=== PATIENT | male | born 1985 | race Caucasian/White ===

== ENCOUNTER 2018-01-22 12:26 | Emergency (ER) | payer SELFPAY ==
[~2018-01-22] VITALS: Ht 180.3 cm; Wt 70.0 kg
[2018-01-22 12:46] VITALS: BP 108/88; PULSE 88; RESP 14; TEMP 100
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
[2018-01-22 13:09] LABS: AUTOMATED NEUTROPHIL # 6.9 TH/MM3 (1.8-7.7); BASOPHIL % 0.3 % (0.0-2.0); EOSINOPHIL # 0.1 TH/MM3 (0-0.4); EOSINOPHIL % 0.8 % (0.0-4.0); HEMATOCRIT 41.9 % (39.0-51.0); HEMOGLOBIN 14.3 GM/DL (13.0-17.0); LYMPH % 19.2 % (9.0-44.0); MEAN CELL VOLUME 88.8 FL (80.0-100.0); MEAN CORPUSCULAR HEMOGLOBIN 30.4 PG (27.0-34.0); MEAN CORPUSCULAR HGB CONC 34.2 % (32.0-36.0); MEAN PLATELET VOLUME 7.4 FL (7.0-11.0); MONO % 11.2 % (0.0-8.0); MONOCYTE # 1.1 TH/MM3 (0-0.9); NEUT % 68.5 % (16.0-70.0); PLATELET COUNT 288 TH/MM3 (150-450); RED BLOOD COUNT 4.72 MIL/MM3 (4.50-5.90); RED CELL DISTRIBUTION WIDTH 14.1 % (11.6-17.2); WHITE BLOOD COUNT 10.1 TH/MM3 (4.0-11.0)
[2018-01-22 13:38] LABS: ALBUMIN 4.2 GM/DL (3.4-5.0); ALT (GPT) 142 U/L (12-78); AST (GOT) 93 U/L (15-37); BLOOD UREA NITROGEN 18 MG/DL (7-18); CALCIUM 9.7 MG/DL (8.5-10.1); CHLORIDE 103 MEQ/L (98-107); CREATININE 1.33 MG/DL (0.60-1.30); GLOMERULAR FILTRATION RATE 63 ML/MIN (>89); GLUCOSE,RANDOM 84 MG/DL (74-106); SODIUM (NA) 138 MEQ/L (136-145)
[2018-01-22 13:47] LABS: ALKALINE PHOSPHATASE 68 U/L (45-117); TOTAL BILIRUBIN ADULT 1.5 MG/DL (0.2-1.0); TOTAL PROTEIN 8.2 GM/DL (6.4-8.2)
[2018-01-23 05:29] VITALS: BP 120/57; PULSE 68; RESP 18; O2SAT 99
--- NOTE | 2018-01-23 10:51 | PD ---
Physical Exam Narrative Patient was cleared by medical team and psychiatric team. Data Data Last Documented VS Vital Signs Date Time Temp Pulse Resp B/P (MAP) Pulse Ox O2 Delivery O2 Flow Rate FiO2 01/23/18 05:29 68 18 120/57 (78) 99 Room Air 01/22/18 12:46 100.0 Orders Orders Complete Blood Count With Diff (01/22/18 12:43) Comprehensive Metabolic Panel (01/22/18 12:43) Thyroid Stimulating Hormone (01/22/18 12:43) Psych Screen (01/22/18 12:43) Drug Screen, Random Urine (01/22/18 12:43) Alcohol (Ethanol) (01/22/18 12:43) Diet Regular Basic (01/22/18 Dinner) Diet Regular Basic (01/23/18 Breakfast) Diet Regular Basic (01/23/18 Lunch) Ed Discharge Order (01/23/18 10:49) Labs Laboratory Tests Test 01/22/18 12:51 01/22/18 19:10 White Blood Count 10.1 TH/MM3 Red Blood Count 4.72 MIL/MM3 Hemoglobin 14.3 GM/DL Hematocrit 41.9 % Mean Corpuscular Volume 88.8 FL Mean Corpuscular Hemoglobin 30.4 PG Mean Corpuscular Hemoglobin Concent 34.2 % Red Cell Distribution Width 14.1 % Platelet Count 288 TH/MM3 Mean Platelet Volume 7.4 FL Neutrophils (%) (Auto) 68.5 % Lymphocytes (%) (Auto) 19.2 % Monocytes (%) (Auto) 11.2 % Eosinophils (%) (Auto) 0.8 % Basophils (%) (Auto) 0.3 % Neutrophils # (Auto) 6.9 TH/MM3 Lymphocytes # (Auto) 2.0 TH/MM3 Monocytes # (Auto) 1.1 TH/MM3 Eosinophils # (Auto) 0.1 TH/MM3 Basophils # (Auto) 0.0 TH/MM3 CBC Comment DIFF FINAL Differential Comment Blood Urea Nitrogen 18 MG/DL Creatinine 1.33 MG/DL Random Glucose 84 MG/DL Total Protein 8.2 GM/DL Albumin 4.2 GM/DL Calcium Level 9.7 MG/DL Alkaline Phosphatase 68 U/L Aspartate Amino Transf (AST/SGOT) 93 U/L Alanine Aminotransferase (ALT/SGPT) 142 U/L Total Bilirubin 1.5 MG/DL Sodium Level 138 MEQ/L Potassium Level 4.6 MEQ/L Chloride Level 103 MEQ/L Carbon Dioxide Level 27.0 MEQ/L Anion Gap 8 MEQ/L Estimat Glomerular Filtration Rate 63 ML/MIN Thyroid Stimulating Hormone 3rd Gen 0.832 uIU/ML Ethyl Alcohol Level LESS THAN 3 MG/DL Urine Opiates Screen NEG Urine Barbiturates Screen NEG Urine Amphetamines Screen POS Urine Benzodiazepines Screen NEG Urine Cocaine Screen POS Urine Cannabinoids Screen POS MDM Supervised Visit with EROS: No Diagnosis Primary Impression: Medical clearance for psychiatric admission Additional Impression: Substance induced mood disorder Patient Instructions: General Instructions Additional Instruction: Follow-up with local physician. Med/Other Pt SpecificInfo: No Change to Meds Scripts No Active Prescriptions or Reported Meds Disposition: 01 DISCHARGE HOME Condition: Stable Stephan Scanlon MD January 23, 2018 10:51
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
== END 2018-01-23 11:48 | disposition home or self-care (01) ==
LOC: NEPJ 12:26
DX: F19.14 Other psychoactive substance abuse with psychoactive substance-induced mood disorder (principal); F15.14 Other stimulant abuse with stimulant-induced mood disorder; F17.210 Nicotine dependence, cigarettes, uncomplicated
CPT/HCPCS: 80053; 80307; 84443; 85025; 99283

== ENCOUNTER 2018-04-25 12:44 | Inpatient (IN) ==
[2018-04-25 17:52] LABS: Calcium 9.3 mg/dL (8.5-10.1); Carbon Dioxide 30.4 meq/L (21.0-32.0); Potassium 4.4 meq/L (3.5-5.1)
[2018-04-25 17:55] LABS: Chol/HDL Ratio 1.93 Ratio; HDL Cholesterol 83.7 mg/dL (40.0-60.0)
[2018-04-25] MEDS ORDERED: Acetaminophen 325 MG Tablet PO PRN (19:57)
[2018-04-25] MEDS ORDERED: Aluminum/Magnesium/Simethacone Susp 30 ML UDC PO PRN (19:57)
[2018-04-25] MEDS ORDERED: Ibuprofen 600 MG Tablet PO PRN (20:02)
[2018-04-26 06:01] VITALS: BP 107/65; PULSE 70; RESP 16; TEMP 97.9; O2SAT 99
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
== END 2018-04-26 14:50 | disposition left against medical advice (07) ==
LOC: NEDAMB 12:44 → H270 13:10 → EDSTATUS 21:23
PROVIDERS: ADMIT Psychiatry & Neurology Psychiatry; ATTEND Psychiatry & Neurology Psychiatry